=== PATIENT | female | born 1985 | race Caucasian/White ===

== ENCOUNTER 2017-06-18 19:33 | Emergency (ER) | payer SELFPAY ==
[~2017-06-18] VITALS: Ht 157.5 cm; Wt 74.6 kg
[2017-06-18 19:52] VITALS: BP 135/96; PULSE 122; RESP 20; TEMP 98.9; O2SAT 100
[2017-06-18] MEDS ORDERED: VENTAER INH (20:03)
[2017-06-18] MEDS ORDERED: PRED5PAK PO (20:03)
[2017-06-18] MEDS ORDERED: BENZ100 PO (20:03)
[2017-06-18] MEDS ORDERED: CORITAB2 PO (20:04)
[2017-06-18 20:20] VITALS: BP 129/93; PULSE 114; RESP 20; O2SAT 100
--- NOTE | 2017-06-18 21:36 | PD ---
HPI Chief Complaint: Cold / Flu Symptoms Time Seen by Provider: 21:32 Travel History International Travel<30 days: No Contact w/Intl Traveler<30days: No Traveled to known affect area: No History of Present Illness HPI The patient is a 32-year-old female that complains of a cough along with nausea and vomiting associated with the cough for 6 days. She has chills but denies taking her temperature and denies recording any fever. She does smoke one fourth pack a day. She does have chest discomfort in the midline lower sternal area. She does have wheezes at home. PFSH Past Medical History Anxiety: Yes Depression: Yes Diminished Hearing: No Immunizations Current: Yes Tetanus Vaccination: Unknown Influenza Vaccination: No ?: Not LMP: 6 MONTHS AGO ON DEPO : 2 Para: 2 Tubal Ligation: Yes Past Surgical History Other Surgery: Yes (EXPLOR. LAP) Social History Alcohol Use: Yes (OCC) Tobacco Use: Yes (6-7 CIGS/DAY) Substance Use: No Allergies-Medications (Allergen,Severity, Reaction): Coded Allergies: azithromycin (Verified Allergy, Severe, HIVES, 06/18/17) oseltamivir (Verified Allergy, Severe, HIVES, 06/18/17) topiramate (Verified Allergy, Severe, HIVES, 06/18/17) Reported Meds & Prescriptions Reported Meds & Active Scripts Active Reported Coricidin Hbp Cold & Flu (Chlorpheniramine-Acetaminophen) 2-325 Mg Tab 2 Tab PO Q4H PRN Prednisone (21) 5 mg tab Dose Pack (Prednisone) 5 Mg Dspk 5 Mg PO DIRECTED Tessalon Perles (Benzonatate) 100 Mg Cap 100 Mg PO TID PRN Ventolin Hfa 18 GM Inh (Albuterol Sulfate) 90 Mcg/Act Aer 2 Puff INH Q4-6H PRN Review of Systems Except as stated in HPI: all other systems reviewed are Neg Physical Exam Narrative GENERAL: The patient is alert, oriented 3 in no respiratory distress. Her oximetry is 100% and, when I see the patient, respirations are 18. SKIN: Focused skin assessment warm/dry. HEAD: Atraumatic. Normocephalic. EYES: Pupils equal and round. No scleral icterus. No injection or drainage. ENT: No nasal bleeding or discharge. Mucous membranes pink and moist. NECK: Trachea midline. No JVD. CARDIOVASCULAR: Regular rate and rhythm. No murmur appreciated. RESPIRATORY: No accessory muscle use. Widely scattered bilateral wheezes are heard. Breath sounds equal bilaterally. GASTROINTESTINAL: Abdomen soft, non-tender, nondistended. Hepatic and splenic margins not palpable. MUSCULOSKELETAL: No obvious deformities. No clubbing. No cyanosis. No edema. NEUROLOGICAL: Awake and alert. No obvious cranial nerve deficits. Motor grossly within normal limits. Normal speech. PSYCHIATRIC: Appropriate mood and affect; insight and judgment normal. Data Data Last Documented VS Vital Signs Date Time Temp Pulse Resp B/P (MAP) Pulse Ox O2 Delivery O2 Flow Rate FiO2 06/18/17 20:20 114 20 129/93 (105) 100 Room Air 06/18/17 19:52 98.9 Orders Orders Complete Blood Count With Diff (06/18/17 21:39) Basic Metabolic Panel (Bmp) (06/18/17 21:39) Urinalysis - C+S If Indicated (06/18/17 21:39) Iv Access Insert/Monitor (06/18/17 21:39) Ecg Monitoring (06/18/17 21:39) Oximetry (06/18/17 21:39) Oxygen Administration (06/18/17 21:39) Chest, Pa & Lat (06/18/17 21:39) Sodium Chloride 0.9% Flush (Ns Flush) (06/18/17 21:45) Methylprednisolone So Succ Inj (Solumedr (06/18/17 21:45) Albuterol-Ipratropium Neb (Duoneb Neb) (06/18/17 21:45) MDM Medical Decision Making Medical Screen Exam Complete: Yes Emergency Medical Condition: Yes Medical Record Reviewed: Yes Differential Diagnosis Fracture finger, contusion of finger, laceration finger Narrative Course The patient has a laceration of her fifth finger. She does not want it sutured and the finger does not need to be sutured, it can be bandaged. Diagnosis Primary Impression: Laceration of finger of right hand Additional Impression: Contusion of right little finger Additional Instructions: As we discussed, keep the finger clean and dry and use antibiotic ointment over the laceration. Change the bandage daily and return to emergency department if you have any problems. Disposition: 01 DISCHARGE HOME Condition: Stable Blane Brito MD Jun 18, 2017 21:35
[2017-06-18] MEDS ORDERED: methylPREDNISolone SOD SUCC 125 MG/2 ML VIAL IV PUSH ONE (21:45)
[2017-06-18] MEDS: RESP: ALBUTEROL 2.5 MG/IPRATROPIUM 0.5 MG NEB (SCH) INH ×3 (21:49→22:15)
--- NOTE | 2017-06-18 21:53 | RADRPT ---
EXAM DATE/TIME: 06/18/2017 21:46 [facility] COMPARISON: No previous studies available for comparison. INDICATIONS : Cough, chest congestion for 5 days MEDICAL HISTORY : None. SURGICAL HISTORY : None. ENCOUNTER: Initial ACUITY: 4 - 6 days PAIN SCORE: 5/10 LOCATION: Bilateral chest FINDINGS: PA and lateral views of the chest demonstrate the lungs to be symmetrically aerated without evidence of mass, infiltrate or effusion. The cardiomediastinal contours are unremarkable. Osseous structure s are intact. CONCLUSION: No acute disease. There is no evidence of pneumonia. Nikko Manzano MD on June 18, 2017 at 21:51 Board Certified Radiologist. This report was verified electronically.
[2017-06-18 22:00] VITALS: RESP 18; O2SAT 100
[2017-06-18 22:10] VITALS: BP 127/82; PULSE 122; RESP 18; O2SAT 100
[2017-06-18 22:13] LABS: BLOOD, URINE LARGE (NEG); GLUCOSE,URINE NEG (NEG); KETONE, URINE TRACE mg/dL (NEG); NITRITE,URINE NEG (NEG); PH, URINE 5.5 (5.0-8.5)
[2017-06-18 22:18] LABS: RBC, URINE 15-19 /hpf (0-3); SQUAMOUS EPITHELIAL CELL URINE > 8 /hpf (0-5); URINE COLOR YELLOW (YELLW/STRAW)
[2017-06-18 22:19] LABS: COMMENT (UR) CULT NOT INDICATED; CULTURE IF INDICATED CULT NOT INDICATED
[2017-06-18 22:22] LABS: AUTOMATED NEUTROPHIL # 6.6 TH/MM3 (1.8-7.7); BASOPHIL # 0.1 TH/MM3 (0-0.2); BASOPHIL % 0.5 % (0.0-2.0); EOSINOPHIL # 0.3 TH/MM3 (0-0.4); EOSINOPHIL % 2.4 % (0.0-4.0); HEMATOCRIT 42.3 % (35.0-46.0); HEMO FLAGS AUTO DIFF; LYMPH % 29.9 % (9.0-44.0); LYMPHOCYTE # 3.2 TH/MM3 (1.0-4.8); MEAN CELL VOLUME 82.4 FL (80.0-100.0); MEAN CORPUSCULAR HEMOGLOBIN 27.4 PG (27.0-34.0); MEAN CORPUSCULAR HGB CONC 33.3 % (32.0-36.0); MONO % 4.2 % (0.0-8.0); PLATELET COUNT 372 TH/MM3 (150-450); RED BLOOD COUNT 5.14 MIL/MM3 (4.00-5.30); RED CELL DISTRIBUTION WIDTH 12.6 % (11.6-17.2); WHITE BLOOD COUNT 10.6 TH/MM3 (4.0-11.0)
[2017-06-18 22:29] LABS: POTASSIUM 3.3 MEQ/L (3.5-5.1)
[2017-06-18] MEDS: SODIUM CHLORIDE 0.9% FLUSH 10 ML FLUSH IVF PRN ×2 (22:30→22:54)
[2017-06-18 22:32] LABS: BICARBONATE 24.9 MEQ/L (21.0-32.0)
[2017-06-18 22:37] LABS: PLATELET ESTIMATE SMEAR NORMAL (NORMAL); PLATELET MORPHOLOGY NORMAL (NORMAL); SCAN/DIFF AUTO DIFF CONFIRMED
[2017-06-18] MEDS ORDERED: SODIUM CHLOR 0.9% 1000 ML INJ 1,000 ML IV SCH (22:45)
--- NOTE | 2017-06-18 22:59 | PD ---
HPI Chief Complaint: Cold / Flu Symptoms Time Seen by Provider: 21:32 Travel History International Travel<30 days: No Contact w/Intl Traveler<30days: No Traveled to known affect area: No History of Present Illness HPI The patient is a 32-year-old female who complains of a nonproductive cough for one week. The patient has vomiting in association with the cough. She denies any diarrhea. She states she does have chills. She has pleuritic chest pain in the lower midline sternal area. She admits to smoking one fourth pack a day. PFSH Past Medical History Anxiety: Yes Depression: Yes Diminished Hearing: No Immunizations Current: Yes Tetanus Vaccination: Unknown Influenza Vaccination: No ?: Not LMP: 6 MONTHS AGO ON DEPO : 2 Para: 2 Tubal Ligation: Yes Past Surgical History Other Surgery: Yes (EXPLOR. LAP) Social History Alcohol Use: Yes (OCC) Tobacco Use: Yes (6-7 CIGS/DAY) Substance Use: No Allergies-Medications (Allergen,Severity, Reaction): Coded Allergies: azithromycin (Verified Allergy, Severe, HIVES, 06/18/17) oseltamivir (Verified Allergy, Severe, HIVES, 06/18/17) topiramate (Verified Allergy, Severe, HIVES, 06/18/17) Reported Meds & Prescriptions Reported Meds & Active Scripts Active Doxycycline Hyclate 100 Mg Cap 100 Mg PO BID Reported Coricidin Hbp Cold & Flu (Chlorpheniramine-Acetaminophen) 2-325 Mg Tab 2 Tab PO Q4H PRN Prednisone (21) 5 mg tab Dose Pack (Prednisone) 5 Mg Dspk 5 Mg PO DIRECTED Tessalon Perles (Benzonatate) 100 Mg Cap 100 Mg PO TID PRN Ventolin Hfa 18 GM Inh (Albuterol Sulfate) 90 Mcg/Act Aer 2 Puff INH Q4-6H PRN Review of Systems Except as stated in HPI: all other systems reviewed are Neg Physical Exam Narrative GENERAL: The patient is alert, oriented 3 in no respiratory distress but she does have chest pain in the midline lower sternal area. Her vital signs are normal except for heart rate of 114. SKIN: Focused skin assessment warm/dry. No skin rash is seen. HEAD: Atraumatic. Normocephalic. EYES: Pupils equal and round. No scleral icterus. No injection or drainage. ENT: No nasal bleeding or discharge. Mucous membranes pink and moist. NECK: Trachea midline. No JVD. CARDIOVASCULAR: Regular rate and rhythm. No murmur appreciated. RESPIRATORY: No accessory muscle use. Scattered wheezes are heard bilaterally along with a few rhonchi.. Breath sounds equal bilaterally. GASTROINTESTINAL: Abdomen soft, non-tender, nondistended. Hepatic and splenic margins not palpable. No guarding or rebound is present. MUSCULOSKELETAL: No obvious deformities. No clubbing. No cyanosis. No edema. NEUROLOGICAL: Awake and alert. No obvious cranial nerve deficits. Motor grossly within normal limits. Normal speech. PSYCHIATRIC: Appropriate mood and affect; insight and judgment normal. Data Data Last Documented VS Vital Signs Date Time Temp Pulse Resp B/P (MAP) Pulse Ox O2 Delivery O2 Flow Rate FiO2 06/18/17 22:10 122 18 127/82 (97) 100 Room Air 06/18/17 19:52 98.9 Orders Orders Complete Blood Count With Diff (06/18/17 21:39) Basic Metabolic Panel (Bmp) (06/18/17 21:39) Urinalysis - C+S If Indicated (06/18/17 21:39) Iv Access Insert/Monitor (06/18/17 21:39) Ecg Monitoring (06/18/17 21:39) Oximetry (06/18/17 21:39) Oxygen Administration (06/18/17 21:39) Chest, Pa & Lat (06/18/17 21:39) Sodium Chloride 0.9% Flush (Ns Flush) (06/18/17 21:45) Methylprednisolone So Succ Inj (Solumedr (06/18/17 21:45) Albuterol-Ipratropium Neb (Duoneb Neb) (06/18/17 21:45) Sodium Chlor 0.9% 1000 Ml Inj (Ns 1000 M (06/18/17 22:45) Ondansetron Inj (Zofran Inj) (06/18/17 23:00) Doxycycline (Vibramycin) (06/18/17 23:15) Labs Laboratory Tests Test 06/18/17 21:50 06/18/17 22:18 Urine Color YELLOW Urine Turbidity CLOUDY Urine pH 5.5 Urine Specific [place] 1.033 Urine Protein NEG mg/dL Urine Glucose (UA) NEG mg/dL Urine Ketones TRACE mg/dL Urine Occult Blood LARGE Urine Nitrite NEG Urine Bilirubin NEG Urine Leukocyte Esterase NEG Urine RBC 15-19 /hpf Urine WBC 3-5 /hpf Urine Squamous Epithelial Cells > 8 /hpf Urine Amorphous Sediment SMALL Urine Bacteria NONE /hpf Microscopic Urinalysis Comment CULT NOT INDICATED White Blood Count 10.6 TH/MM3 Red Blood Count 5.14 MIL/MM3 Hemoglobin 14.1 GM/DL Hematocrit 42.3 % Mean Corpuscular Volume 82.4 FL Mean Corpuscular Hemoglobin 27.4 PG Mean Corpuscular Hemoglobin Concent 33.3 % Red Cell Distribution Width 12.6 % Platelet Count 372 TH/MM3 Mean Platelet Volume 6.9 FL Neutrophils (%) (Auto) 63.0 % Lymphocytes (%) (Auto) 29.9 % Monocytes (%) (Auto) 4.2 % Eosinophils (%) (Auto) 2.4 % Basophils (%) (Auto) 0.5 % Neutrophils # (Auto) 6.6 TH/MM3 Lymphocytes # (Auto) 3.2 TH/MM3 Monocytes # (Auto) 0.4 TH/MM3 Eosinophils # (Auto) 0.3 TH/MM3 Basophils # (Auto) 0.1 TH/MM3 CBC Comment AUTO DIFF Differential Comment AUTO DIFF CONFIRMED Platelet Estimate NORMAL Platelet Morphology Comment NORMAL Red Cell Morphology Comment NORMAL Blood Urea Nitrogen 22 MG/DL Creatinine 1.20 MG/DL Random Glucose 81 MG/DL Calcium Level 8.6 MG/DL Sodium Level 139 MEQ/L Potassium Level 3.3 MEQ/L Chloride Level 105 MEQ/L Carbon Dioxide Level 24.9 MEQ/L Anion Gap 9 MEQ/L Estimat Glomerular Filtration Rate 52 ML/MIN [facility] Medical Decision Making Medical Screen Exam Complete: Yes Emergency Medical Condition: Yes Medical Record Reviewed: Yes Differential Diagnosis Bronchitis, pulmonary embolus-unlikely, pneumonia, asthma, hypoxemia Narrative Course The patient is not hypoxemic, her oximetry is 100%. She does have a persistent heart rate for murmur embolus is unlikely because of her midline chest pain rather than on one side or the other and because of her oximetry of 100%. The chest x-ray does not show any pneumonia. She does have wheezes and a persistent cough. Impression is bronchitis. Plan: The patient will be given doxycycline 100 mg twice daily for 10 days. She should follow-up with a primary care physician or return to emergency department if worse. Physician Communication Physician Communication As we discussed, we will give you a 6 day work excuse. The antibiotic is one capsule twice daily for 10 days. Follow-up with a primary care physician. If worse, return to the emergency department. Discontinue smoking. Diagnosis Primary Impression: Bronchitis Additional Instructions: As we discussed, the antibiotic is twice daily for 10 days and follow-up with a primary care physician next week. Return to emergency department if you have any problems. Med/Other Pt SpecificInfo: Prescription(s) given Scripts Doxycycline Hyclate (Doxycycline Hyclate) 100 Mg Cap 100 MG PO BID for Infection, #20 CAP 0 Refills Prov: Blane Brito MD 06/18/17 Disposition: 01 DISCHARGE HOME Condition: Stable Blane Brito MD Jun 18, 2017 22:59
[2017-06-18] MEDS ORDERED: DOXY100C PO (23:00)
[2017-06-18] MEDS ORDERED: ONDANSETRON HCL 4 MG/2 ML VIAL IV ONE (23:00)
[2017-06-18 23:10] VITALS: BP 138/71; PULSE 134; RESP 20; O2SAT 100
[2017-06-18] MEDS ORDERED: DOXYCYCLINE HYCLATE 100 MG CAP PO ONE (23:15)
[2017-06-18] MEDS ORDERED: HYDROcodone 5 MG/HOMATROPINE 1.5 MG SYRUP 5 ML CUP PO ONE (23:45)
[2017-06-18] MEDS ORDERED: HYDR1SOL20 PO (23:46)
[2017-06-19 00:20] VITALS: BP 138/68; PULSE 122; RESP 18; O2SAT 100
== END 2017-06-19 00:25 | disposition home or self-care (01) ==
LOC: PHED 19:33
DX: J40 Bronchitis, not specified as acute or chronic (principal); F17.210 Nicotine dependence, cigarettes, uncomplicated
CPT/HCPCS: 71020; 80048; 81001; 85025; 94640; 94664; 96361; 96374; 96375; 99284; J2405; J2930; J7030

== ENCOUNTER 2017-07-03 16:43 | Emergency (ER) | payer MEDICAID, OTHER ==
[~2017-07-03] VITALS: Ht 157.5 cm; Wt 75.0 kg
[~2017-07-03 16:43] MED LIST: BENZ100 PO; CORITAB2 PO; DOXY100C PO; HYDR1SOL20 PO; PRED5PAK PO; VENTAER INH
[2017-07-03 16:47] VITALS: BP 124/89; PULSE 104; RESP 18; TEMP 98; O2SAT 99
[2017-07-03] MEDS ORDERED: PENI500T PO (17:21)
--- NOTE | 2017-07-03 17:22 | PD ---
HPI Chief Complaint: Oral / Dental Pain or Problem Time Seen by Provider: 16:58 Travel History International Travel<30 days: No Contact w/Intl Traveler<30days: No Traveled to known affect area: No History of Present Illness HPI 32-year-old female here for left upper dental pain 7 days. Patient reports multiple decayed and fractured teeth at the site of the discomfort. She reports the pain as throbbing, constant, worse with eating. Unrelieved by OTC Tylenol. She denies fever or chills. PFSH Past Medical History Anxiety: Yes Depression: Yes Diminished Hearing: No Immunizations Current: Yes Tetanus Vaccination: Unknown Influenza Vaccination: No ?: Not LMP: DEPO SHOT-DOES NOT GET : 2 Para: 2 Tubal Ligation: Yes Past Surgical History Other Surgery: Yes (EXPLOR. LAP) Social History Alcohol Use: Yes (OCC beer) Tobacco Use: Yes (quit 2 weeks ago smoked off and on for 20 yrs) Substance Use: No Allergies-Medications (Allergen,Severity, Reaction): Coded Allergies: azithromycin (Verified Allergy, Severe, HIVES, 07/03/17) oseltamivir (Verified Allergy, Severe, HIVES, 07/03/17) topiramate (Verified Allergy, Severe, HIVES, 07/03/17) Reported Meds & Prescriptions Reported Meds & Active Scripts Active No Active Prescriptions or Reported Medications Review of Systems Except as stated in HPI: all other systems reviewed are Neg Physical Exam Narrative GENERAL: Well-nourished, well-developed patient. SKIN: Focused skin assessment warm/dry. HEAD: Normocephalic. EYES: No scleral icterus. No injection or drainage. MOUTH: Mucous membranes moist, no lesions, tongue appear normal. Widespread dental decay with left upper gum erythema NECK: Supple, trachea midline. No JVD or lymphadenopathy. CARDIOVASCULAR: Regular rate and rhythm without murmurs, gallops, or rubs. RESPIRATORY: Breath sounds equal bilaterally. No accessory muscle use. Data Data Last Documented VS Vital Signs Date Time Temp Pulse Resp B/P (MAP) Pulse Ox O2 Delivery O2 Flow Rate FiO2 07/03/17 16:47 98.0 104 18 124/89 (101) 99 MDM Medical Decision Making Medical Screen Exam Complete: Yes Emergency Medical Condition: Yes Differential Diagnosis Dental abscess, dental caries, periodontal disease Narrative Course 32-year-old female here for evaluation of left upper dental pain 1 week. On exam patient has widespread dental decay with multiple decayed teeth with surrounding gum erythema. She is nontoxic appearing. Patient be treated for oral infection and instructed follow-up with dentist Diagnosis Primary Impression: Dental infection Referrals: Dentist Additional Instructions: Take the antibiotics as prescribed. Take [id number] Tylenol or Motrin as needed for pain. Take 600 800 mg of ibuprofen every 6-8 hours as needed for pain. Follow-up with her dentist Scripts Penicillin V Potassium (Penicillin V Potassium) 500 Mg Tab 500 MG PO Q6H for Infection for 7 Days, #28 TAB 0 Refills Prov: Brianna Asencio 07/03/17 Disposition: 01 DISCHARGE HOME Condition: Stable Brianna Asencio Jul 03, 2017 17:22
== END 2017-07-03 17:49 | disposition home or self-care (01) ==
LOC: PHEFT 16:43
DX: K04.7 Periapical abscess without sinus (principal); K03.81 Cracked tooth
CPT/HCPCS: 99283

== ENCOUNTER 2017-07-28 22:14 | Emergency (ER) | payer SELFPAY ==
[~2017-07-28] VITALS: Ht 157.5 cm; Wt 74.4 kg
[~2017-07-28 22:14] MED LIST changes: -BENZ100 PO; -CORITAB2 PO; -DOXY100C PO; -HYDR1SOL20 PO; +PENI500T PO; -PRED5PAK PO; -VENTAER INH
[2017-07-28 22:22] VITALS: BP 135/86; PULSE 119; RESP 18; TEMP 99.1; O2SAT 99
[2017-07-28] MEDS ORDERED: SODIUM CHLOR 0.9% 1000 ML INJ 1,000 ML IV SCH (22:46)
--- NOTE | 2017-07-28 22:59 | PD ---
HPI Chief Complaint: abdominal pain Time Seen by Provider: 22:44 Travel History International Travel<30 days: No Contact w/Intl Traveler<30days: No Traveled to known affect area: No History of Present Illness HPI Patient is a 32-year-old female who comes in complaining of abdominal pain. She says she has had epigastric pain for the past week. She says she has tried taking Tylenol and ibuprofen without relief of her pain. She says that standing and laying down makes the pain worse. She says she had pain like this a year ago and was told it was gallstones. She has not followed up regarding this. She denies fever or chills. She's had some nausea, but no vomiting. She says she is moving her bowels normally. She denies any urinary symptoms. [facility] Past Medical History Anxiety: Yes Depression: Yes Diminished Hearing: No Immunizations Current: Yes : 2 Para: 2 Tubal Ligation: Yes Past Surgical History Other Surgery: Yes (EXPLOR. LAP) Social History Alcohol Use: Yes (OCC beer) Tobacco Use: Yes (quit 2 weeks ago smoked off and on for 20 yrs) Substance Use: No Allergies-Medications (Allergen,Severity, Reaction): Coded Allergies: azithromycin (Verified Allergy, Severe, HIVES, 07/28/17) oseltamivir (Verified Allergy, Severe, HIVES, 07/28/17) topiramate (Verified Allergy, Severe, HIVES, 07/28/17) Reported Meds & Prescriptions Reported Meds & Active Scripts Active Reported Depo-Provera Inj (Medroxyprogesterone Inj) 150 Mg/Ml Inj 150 Mg IM Q90D Review of Systems Except as stated in HPI: all other systems reviewed are Neg General / Constitutional: No: Fever, Chills HENT: No: Headaches, Lightheadedness Respiratory: No: Shortness of Breath Gastrointestinal: Positive: Nausea, Abdominal Pain, No: Vomiting, Diarrhea Genitourinary: No: Dysuria, Flank Pain Musculoskeletal: No: Myalgias, Edema Skin: No Rash, No Change in Pigmentation Neurologic: No: Weakness, Dizziness Physical Exam Narrative GENERAL: Awake and alert, in no acute distress. SKIN: Focused skin assessment warm/dry. HEAD: Atraumatic. Normocephalic. EYES: Pupils equal and round. No scleral icterus. ENT: Mucous membranes pink and moist. NECK: Trachea midline. No JVD. CARDIOVASCULAR: Regular rate and rhythm. No murmur appreciated. RESPIRATORY: No accessory muscle use. Clear to auscultation. Breath sounds equal bilaterally. GASTROINTESTINAL: Abdomen soft, nondistended. Tender to palpation of the mid epigastric area as well as left upper quadrant. No rebound or guarding. MUSCULOSKELETAL: No obvious deformities. No clubbing. No cyanosis. No edema. NEUROLOGICAL: Awake and alert. No obvious cranial nerve deficits. Motor grossly within normal limits. Normal speech. PSYCHIATRIC: Appropriate mood and affect; insight and judgment normal. Data Data Last Documented VS Vital Signs Date Time Temp Pulse Resp B/P (MAP) Pulse Ox O2 Delivery O2 Flow Rate FiO2 07/28/17 23:44 106 18 133/96 (108) 100 Room Air 07/28/17 22:22 99.1 Orders Orders Basic Metabolic Panel (Bmp) (07/28/17 22:46) Complete Blood Count With Diff (07/28/17 22:46) Lipase (07/28/17 22:46) Prothrombin Time / Inr (Pt) (07/28/17 22:46) Act Partial Throm Time (Ptt) (07/28/17 22:46) Urinalysis - C+S If Indicated (07/28/17 22:46) Iv Access Insert/Monitor (07/28/17 22:46) Ecg Monitoring (07/28/17 22:46) Oximetry (07/28/17 22:46) Morphine Inj (Morphine Inj) (07/28/17 23:00) Ondansetron Inj (Zofran Inj) (07/28/17 23:00) Sodium Chlor 0.9% 1000 Ml Inj (Ns 1000 M (07/28/17 22:46) Sodium Chloride 0.9% Flush (Ns Flush) (07/28/17 23:00) Famotidine Inj (Pepcid Inj) (07/28/17 23:00) Al-Mag Hy-Si 40-40-4 Mg/Ml Liq (Mag-Al P (07/28/17 23:00) Lidocaine 2% Viscous (Xylocaine 2% Visco (07/28/17 23:00) Hepatic Functional Panel (07/28/17 22:46) Urine Culture (07/28/17 23:10) Tramadol (Ultram) (07/29/17 00:15) Labs Laboratory Tests Test 07/28/17 23:10 07/28/17 23:25 Urine Color YELLOW Urine Turbidity SLIGHT Urine pH 5.5 Urine Specific [place] 1.026 Urine Protein NEG mg/dL Urine Glucose (UA) NEG mg/dL Urine Ketones NEG mg/dL Urine Occult Blood NEG Urine Nitrite NEG Urine Bilirubin NEG Urine Leukocyte Esterase NEG Urine RBC 0-3 /hpf Urine WBC 9-14 /hpf Urine Squamous Epithelial Cells 6-8 /hpf Urine Bacteria OCC /hpf Urine Mucus MOD /lpf Microscopic Urinalysis Comment CULTURE INDICATED White Blood Count 9.4 TH/MM3 Red Blood Count 5.32 MIL/MM3 Hemoglobin 14.5 GM/DL Hematocrit 45.1 % Mean Corpuscular Volume 84.7 FL Mean Corpuscular Hemoglobin 27.3 PG Mean Corpuscular Hemoglobin Concent 32.2 % Red Cell Distribution Width 14.8 % Platelet Count 349 TH/MM3 Mean Platelet Volume 7.4 FL Neutrophils (%) (Auto) 69.4 % Lymphocytes (%) (Auto) 23.9 % Monocytes (%) (Auto) 4.0 % Eosinophils (%) (Auto) 2.2 % Basophils (%) (Auto) 0.5 % Neutrophils # (Auto) 6.5 TH/MM3 Lymphocytes # (Auto) 2.3 TH/MM3 Monocytes # (Auto) 0.4 TH/MM3 Eosinophils # (Auto) 0.2 TH/MM3 Basophils # (Auto) 0.0 TH/MM3 CBC Comment DIFF FINAL Differential Comment Prothrombin Time 10.7 SEC Prothromb Time International Ratio 1.1 RATIO Activated Partial Thromboplast Time 27.7 SEC Blood Urea Nitrogen 16 MG/DL Creatinine 1.00 MG/DL Random Glucose 67 MG/DL Total Protein 8.2 GM/DL Albumin 4.6 GM/DL Calcium Level 8.7 MG/DL Alkaline Phosphatase 106 U/L Aspartate Amino Transf (AST/SGOT) 21 U/L Alanine Aminotransferase (ALT/SGPT) 29 U/L Total Bilirubin 0.3 MG/DL Direct Bilirubin LESS THAN 0.1 MG/DL Sodium Level 137 MEQ/L Potassium Level 3.3 MEQ/L Chloride Level 104 MEQ/L Carbon Dioxide Level 23.2 MEQ/L Anion Gap 10 MEQ/L Estimat Glomerular Filtration Rate 65 ML/MIN Indirect Bilirubin 0.2 MG/DL Lipase 226 U/L [facility] Medical Decision Making Medical Screen Exam Complete: Yes Emergency Medical Condition: Yes Medical Record Reviewed: Yes Differential Diagnosis Gastritis versus pancreatitis versus cholelithiasis versus cholecystitis Narrative Course Patient is a 32-year-old female comes in complaining of abdominal pain for the past week. Exam shows epigastric tenderness on palpation. IV established, labs sent. Labs show no acute abnormalities. Bilirubin is within normal limits , AST and ALT are within normal limits. Urine is positive for bacteria. Patient given GI cocktail and a small dose of pain medicine. She reports some relief of her pain. Given additional pain medicine. Advised this is likely gastritis. Advised to eat a bland diet, avoid spicy foods, quit smoking. Given a prescription for Macrobid as well as Zantac. Advised follow-up with a primary doctor and gastroenterology. Advised to return to the ED as needed for any worsening symptoms. Diagnosis Primary Impression: Gastritis Qualified Codes: K29.00 - Acute gastritis without bleeding Additional Impression: UTI (urinary tract infection) Qualified Codes: N30.00 - Acute cystitis without hematuria Referrals: [facility] call for appointment Patient Instructions: Gastritis (ED), General Instructions, Urinary Tract Infection in Women (ED) Additional Instructions: Take all of your antibiotic. Take the Zantac twice a day. Avoid spicy foods, peppers, tomatoes, caffeine, smoking. Follow-up with these area clinic. Follow -up with gastroenterology as needed. Return to the ED as needed for any worsening symptoms. Scripts Nitrofurantoin Monohydrate Macrocrystals (Macrobid) 100 Mg Cap 100 MG PO BID for Infection for 5 Days, #10 CAP 0 Refills Prov: Jennyfer Urias MD 07/29/17 Ranitidine (Zantac) 150 Mg Tab 150 MG PO BID for Reduce Stomach Acid, #60 TAB 0 Refills Prov: Jennyfer Urias MD 07/29/17 Disposition: 01 DISCHARGE HOME Condition: Stable Jennyfer Urias MD Jul 28, 2017 22:59
[2017-07-28] MEDS ORDERED: ONDANSETRON HCL 4 MG/2 ML VIAL IVP ONE (23:00)
[2017-07-28] MEDS ORDERED: LIDOCAINE VISCOUS 2% SOLN 15 ML UDC PO ONE (23:00)
[2017-07-28] MEDS ORDERED: FAMOTIDINE 20 MG/2 ML VIAL IV PUSH ONE (23:00)
[2017-07-28] MEDS ORDERED: SODIUM CHLORIDE 0.9% FLUSH 10 ML FLUSH IV FLUSH PRN (23:00)
[2017-07-28] MEDS ORDERED: MORPHINE SULFATE 4 MG/ML INJ IV PUSH ONE (23:00)
[2017-07-28] MEDS ORDERED: ALUMINUM/MAGNESIUM/SIMETH 30 ML CUP PO ONE (23:00)
[2017-07-28 23:38] LABS: AUTOMATED NEUTROPHIL # 6.5 TH/MM3 (1.8-7.7); BASOPHIL % 0.5 % (0.0-2.0); EOSINOPHIL # 0.2 TH/MM3 (0-0.4); EOSINOPHIL % 2.2 % (0.0-4.0); HEMATOCRIT 45.1 % (35.0-46.0); LYMPH % 23.9 % (9.0-44.0); LYMPHOCYTE # 2.3 TH/MM3 (1.0-4.8); MEAN CELL VOLUME 84.7 FL (80.0-100.0); MEAN CORPUSCULAR HEMOGLOBIN 27.3 PG (27.0-34.0); MEAN CORPUSCULAR HGB CONC 32.2 % (32.0-36.0); NEUT % 69.4 % (16.0-70.0); PLATELET COUNT 349 TH/MM3 (150-450); RED BLOOD COUNT 5.32 MIL/MM3 (4.00-5.30); RED CELL DISTRIBUTION WIDTH 14.8 % (11.6-17.2); WHITE BLOOD COUNT 9.4 TH/MM3 (4.0-11.0)
[2017-07-28 23:40] LABS: BLOOD, URINE NEG (NEG); GLUCOSE,URINE NEG (NEG); KETONE, URINE NEG (NEG); NITRITE,URINE NEG (NEG); PH, URINE 5.5 (5.0-8.5)
[2017-07-28 23:44] VITALS: BP 133/96; PULSE 106; RESP 18; O2SAT 100
[2017-07-28 23:45] LABS: HEMO FLAGS DIFF FINAL
[2017-07-28 23:49] LABS: CHLORIDE 104 MEQ/L (98-107); POTASSIUM 3.3 MEQ/L (3.5-5.1); SODIUM (NA) 137 MEQ/L (136-145)
[2017-07-28 23:53] LABS: ANION GAP 10 MEQ/L (5-15); APTT (PATIENT) 27.7 SEC (24.3-30.1); BICARBONATE 23.2 MEQ/L (21.0-32.0); BLOOD UREA NITROGEN 16 MG/DL (7-18); INTERNATIONAL NORMALIZED RATIO 1.1 RATIO; PROTHROMBIN TIME - PATIENT 10.7 SEC (9.8-11.6)
[2017-07-28 23:53] LABS: URINE COLOR YELLOW (YELLW/STRAW)
[2017-07-28 23:55] LABS: MUCUS URINE MOD /lpf (OCC)
[2017-07-28 23:56] LABS: RBC, URINE 0-3 /hpf (0-3)
[2017-07-28 23:56] LABS: ALT (GPT) 29 U/L (10-53); AST (GOT) 21 U/L (15-37); GLOMERULAR FILTRATION RATE 65 ML/MIN (>89)
[2017-07-28 23:57] LABS: BACTERIA, URINE OCC /hpf; COMMENT (UR) CULTURE INDICATED; CULTURE IF INDICATED CULTURE INDICATED
[2017-07-28 23:58] LABS: INDIRECT BILIRUBIN 0.2 MG/DL (0.0-0.8); TOTAL BILIRUBIN ADULT 0.3 MG/DL (0.2-1.0)
[2017-07-28 23:59] LABS: ALKALINE PHOSPHATASE 106 U/L (45-117)
[2017-07-29] MEDS ORDERED: DEPO150I IM
[2017-07-29] MEDS ORDERED: traMADol HCL 50 MG TAB PO ONE (00:15)
[2017-07-29] MEDS ORDERED: MACR100C2 PO (00:17)
[2017-07-29] MEDS ORDERED: ZANT150T2 PO (00:17)
[2017-07-29 00:19] VITALS: BP 119/74; TEMP 99
== END 2017-07-29 00:35 | disposition home or self-care (01) ==
LOC: PHED 22:14
DX: K29.00 Acute gastritis without bleeding (principal); N30.00 Acute cystitis without hematuria; B96.89 Other specified bacterial agents as the cause of diseases classified elsewhere; Z87.891 Personal history of nicotine dependence
CPT/HCPCS: 80048; 80076; 81001; 83690; 85025; 85610; 85730; 87086; 96361; 96374; 96375; 99284; J2270; J2405; J7030

== ENCOUNTER 2017-08-15 17:05 | Emergency (ER) | payer SELFPAY ==
[~2017-08-15] VITALS: Ht 157.5 cm; Wt 74.8 kg
[~2017-08-15 17:05] MED LIST changes: +DEPO150I IM; +MACR100C2 PO; -PENI500T PO; +ZANT150T2 PO
[2017-08-15 17:07] VITALS: BP 131/91; PULSE 116; RESP 16; TEMP 99.3; O2SAT 98
[2017-08-15] MEDS ORDERED: ALBUAER3 INH (17:47)
[2017-08-15] MEDS ORDERED: BENZ100 PO (17:47)
[2017-08-15] MEDS ORDERED: PRED20 PO (17:47)
--- NOTE | 2017-08-15 17:47 | PD ---
HPI Chief Complaint: Cold / Flu Symptoms Time Seen by Provider: 17:38 Travel History International Travel<30 days: No Contact w/Intl Traveler<30days: No Traveled to known affect area: No History of Present Illness HPI 32-year-old female here for cough, nasal congestion, subjective fever 7 days. She reports occasional wheezing. History of asthma. She denies chest pain, shortness of breath. No sick contacts at home. No foreign travel. Symptom severity is moderate. Unrelieved by OTC cough and cold medicines. PFSH Past Medical History Anemia: Yes Anxiety: Yes Depression: Yes Diminished Hearing: No Reproductive: Yes (ENDOMETRIOSIS) Immunizations Current: Yes Pneumonia: Yes Seizures: Yes (R/T BEING TAKEN OFF MEDS (SEROQUEL AND KLONOPIN)) Tetanus Vaccination: > 5 Years Influenza Vaccination: Yes ?: Not : 2 Para: 2 Ovarian Cysts: Yes Tubal Ligation: Yes (2009) Past Surgical History Abdominal Surgery: Yes (EXP LAP: 2016 R/T "PAINFUL PERIODS") Section: Yes (X1, 2009) Other Surgery: Yes (EXPLOR. LAP) Family History Family Hypercholesterolemia: Yes (MATERNAL GRANDFATHER) Social History Alcohol Use: Yes (OCC beer) Tobacco Use: Yes (QUIT 06/28/17, PRIOR TO THAT: 08/21 PPD) Substance Use: No Allergies-Medications (Allergen,Severity, Reaction): Coded Allergies: azithromycin (Verified Allergy, Severe, HIVES, 08/15/17) oseltamivir (Verified Allergy, Severe, HIVES, 08/15/17) topiramate (Verified Allergy, Severe, HIVES, 08/15/17) Reported Meds & Prescriptions Reported Meds & Active Scripts Active Prednisone 20 Mg Tab 40 Mg PO DAILY Take 40 mg (2 tablets) daily for 5 days Proair Hfa 8.5 GM Inh (Albuterol Sulfate) 90 Mcg/Act Aer 2 Puff INH Q4-6H PRN 108 mcg/actuation Tessalon Perles (Benzonatate) 100 Mg Cap 100 Mg PO TID PRN 5 Days Review of Systems Except as stated in HPI: all other systems reviewed are Neg General / Constitutional: Positive: Fever Eyes: No: Visual changes HENT: Positive: Congestion Cardiovascular: No: Chest Pain or Discomfort Respiratory: Positive: Cough Gastrointestinal: No: Abdominal Pain Genitourinary: No: Dysuria Musculoskeletal: No: Pain Skin: No Rash Physical Exam Narrative GENERAL: Alert female. Nontoxic appearing. No distress. SKIN: Warm and dry. HEAD: Normocephalic. EYES: No injection or drainage. NECK: Supple, trachea midline. No JVD or lymphadenopathy. CARDIOVASCULAR: Regular rate and rhythm RESPIRATORY: Breath sounds equal bilaterally. No accessory muscle use. Patient with a harsh sounding cough. GASTROINTESTINAL: Abdomen soft, non-tender, nondistended. Data Data Last Documented VS Vital Signs Date Time Temp Pulse Resp B/P (MAP) Pulse Ox O2 Delivery O2 Flow Rate FiO2 08/15/17 17:19 Room Air 08/15/17 17:07 99.3 116 16 131/91 (104) 98 Orders Orders Ed Discharge Order (08/15/17 17:48) [facility] Medical Decision Making Medical Screen Exam Complete: Yes Emergency Medical Condition: Yes Differential Diagnosis URI, influenza, bronchitis, pneumonia Narrative Course 32-year-old female here with cough and congestion 7 days. Reports occasional wheezing. She is well-appearing. Her vital signs are stable. She does have a harsh sounding cough. No adventitious breath sounds. She has a history of asthma and does not have an inhaler. Symptomatic treatment for bronchitis was discussed with patient. She will be discharged home with Delilah Bustos, short dose of steroids, albuterol inhaler. With her primary doctor. Diagnosis Primary Impression: URI (upper respiratory infection) Qualified Codes: J06.9 - Acute upper respiratory infection, unspecified; B97.89 - Other viral agents as the cause of diseases classified elsewhere Referrals: Primary Care Physician Additional Instructions: Stay well hydrated by drinking plenty of fluids. Tylenol and ibuprofen as needed for pain and fever. Rest. Follow-up the primary doctor. Scripts Prednisone (Prednisone) 20 Mg Tab 40 MG PO DAILY, #6 TAB 0 Refills Take 40 mg (2 tablets) daily for 5 days Prov: Brianna Asencio [employer] 08/15/17 Albuterol 8.5 GM Inh (Proair Hfa 8.5 GM Inh) 90 Mcg/Act Aer 2 PUFF INH Q4-6H Y for SHORTNESS OF BREATH, #1 INHALER 0 Refills 108 mcg/actuation Prov: Brianna Asencio [employer] 08/15/17 Benzonatate (Tessalon Perles) 100 Mg Cap 100 MG PO TID Y for COUGH for 5 Days, CAP 0 Refills Prov: Brianna Asencio 08/15/17 Disposition: 01 DISCHARGE HOME Condition: Stable Brianna Asencio Aug 15, 2017 17:47
== END 2017-08-15 17:57 | disposition home or self-care (01) ==
LOC: PHEFT 17:05
DX: J06.9 Acute upper respiratory infection, unspecified (principal); J45.909 Unspecified asthma, uncomplicated; F41.9 Anxiety disorder, unspecified; F32.9 Major depressive disorder, single episode, unspecified; Z87.891 Personal history of nicotine dependence
CPT/HCPCS: 99284

== ENCOUNTER 2017-09-03 13:34 | Emergency (ER) | payer SELFPAY ==
[~2017-09-03] VITALS: Ht 157.5 cm; Wt 74.5 kg
[~2017-09-03 13:34] MED LIST changes: +ALBUAER3 INH; +BENZ100 PO; -DEPO150I IM; -MACR100C2 PO; +PRED20 PO; -ZANT150T2 PO
[2017-09-03 13:36] VITALS: BP 95/63; PULSE 102; RESP 17; TEMP 98.4; O2SAT 100
[2017-09-03] MEDS ORDERED: SODIUM CHLOR 0.9% 1000 ML INJ 1,000 ML IV ONE (14:00)
[2017-09-03] MEDS ORDERED: ONDANSETRON HCL 4 MG/2 ML VIAL IV PUSH ONE (14:00)
[2017-09-03] MEDS ORDERED: KETOROLAC TROMETHAMINE 30 MG/ML (IVP) VIAL IV PUSH ONE (14:00)
[2017-09-03] MEDS ORDERED: DEPO150I IM (14:23)
--- NOTE | 2017-09-03 14:34 | PD ---
HPI Chief Complaint: GI Complaint Time Seen by Provider: 13:42 Travel History International Travel<30 days: No Contact w/Intl Traveler<30days: No Traveled to known affect area: No History of Present Illness HPI This is a 32-year-old female who presents to the emergency department with nausea, vomiting and diarrhea, constant for 3 days, moderate severity, associated with fatigue and weakness as well as some cramping upper abdominal pain. She denies any fevers or chills. She did complete an antibiotic for dental infection that was 3-4 weeks ago. She says she works at [employer] and is exposed to the public. She denies any known sick contacts. She has not traveled anywhere recently. [facility] Past Medical History Anemia: Yes Anxiety: Yes Depression: Yes Diminished Hearing: No Reproductive: Yes (ENDOMETRIOSIS) Immunizations Current: Yes Pneumonia: Yes Seizures: Yes (R/T BEING TAKEN OFF MEDS (SEROQUEL AND KLONOPIN)) ?: Not LMP: DEPO SHOT : 2 Para: 2 Ovarian Cysts: Yes Tubal Ligation: Yes (2009) Past Surgical History Abdominal Surgery: Yes (EXP LAP: 2016 R/T "PAINFUL PERIODS") Section: Yes (X1, 2009) Other Surgery: Yes (EXPLOR. LAP) Family History Family Hypercholesterolemia: Yes (MATERNAL GRANDFATHER) Social History Alcohol Use: No (DENIES) Tobacco Use: No (QUIT 06/28/17, PRIOR TO THAT: 08/21 PPD) Substance Use: No Allergies-Medications (Allergen,Severity, Reaction): Coded Allergies: azithromycin (Verified Allergy, Severe, HIVES, 09/03/17) oseltamivir (Verified Allergy, Severe, HIVES, 09/03/17) topiramate (Verified Allergy, Severe, HIVES, 09/03/17) Reported Meds & Prescriptions Reported Meds & Active Scripts Active Reported Depo-Provera Inj (Medroxyprogesterone Inj) 150 Mg/Ml Inj 150 Mg IM ONCE Review of Systems Except as stated in HPI: all other systems reviewed are Neg Physical Exam Narrative GENERAL:Well appearing, no acute distress SKIN: Focused skin assessment warm and dry. HEAD: Atraumatic. Normocephalic. EYES: Pupils equal and round. No injection or drainage. ENT: Dry mucous membranes NECK: Trachea midline. CARDIOVASCULAR: Regular rate and rhythm. No murmur appreciated. RESPIRATORY: Clear to auscultation. Breath sounds equal bilaterally. GASTROINTESTINAL: Abdomen soft, mildly tender to palpation diffusely with no rebound/guarding. MUSCULOSKELETAL: No obvious deformities. NEUROLOGICAL: Awake and alert. No obvious cranial nerve deficits. Moving all extremities. Moving all extremities. PSYCHIATRIC: Appropriate mood and affect; insight and judgment normal. Data Data Last Documented VS Vital Signs Date Time Temp Pulse Resp B/P (MAP) Pulse Ox O2 Delivery O2 Flow Rate FiO2 09/03/17 13:36 98.4 102 17 95/63 (74) 100 Orders Orders Complete Blood Count With Diff (09/03/17 13:58) Comprehensive Metabolic Panel (09/03/17 13:58) ^ Insert Iv (09/03/17 13:58) Sodium Chlor 0.9% 1000 Ml Inj (Ns 1000 M (09/03/17 14:00) Ondansetron Inj (Zofran Inj) (09/03/17 14:00) Ketorolac Inj (Toradol Inj) (09/03/17 14:00) Ed Poc Ultrasound (09/03/17 ) Ondansetron Odt (Zofran Odt) (09/03/17 15:45) Ketorolac Inj (Toradol Inj) (09/03/17 15:45) Labs Laboratory Tests Test 09/03/17 15:20 White Blood Count 6.0 TH/MM3 Red Blood Count 5.01 MIL/MM3 Hemoglobin 13.7 GM/DL Hematocrit 42.6 % Mean Corpuscular Volume 85.0 FL Mean Corpuscular Hemoglobin 27.4 PG Mean Corpuscular Hemoglobin Concent 32.2 % Red Cell Distribution Width 14.8 % Platelet Count 432 TH/MM3 Mean Platelet Volume 7.2 FL Neutrophils (%) (Auto) 60.8 % Lymphocytes (%) (Auto) 31.2 % Monocytes (%) (Auto) 5.2 % Eosinophils (%) (Auto) 1.5 % Basophils (%) (Auto) 1.3 % Neutrophils # (Auto) 3.6 TH/MM3 Lymphocytes # (Auto) 1.9 TH/MM3 Monocytes # (Auto) 0.3 TH/MM3 Eosinophils # (Auto) 0.1 TH/MM3 Basophils # (Auto) 0.1 TH/MM3 CBC Comment DIFF FINAL Differential Comment Blood Urea Nitrogen 13 MG/DL Creatinine 0.92 MG/DL Random Glucose 82 MG/DL Total Protein 7.9 GM/DL Albumin 4.1 GM/DL Calcium Level 9.2 MG/DL Alkaline Phosphatase 93 U/L Aspartate Amino Transf (AST/SGOT) 38 U/L Alanine Aminotransferase (ALT/SGPT) 40 U/L Total Bilirubin 0.5 MG/DL Sodium Level 138 MEQ/L Potassium Level 4.2 MEQ/L Chloride Level 106 MEQ/L Carbon Dioxide Level 24.6 MEQ/L Anion Gap 7 MEQ/L Estimat Glomerular Filtration Rate 71 ML/MIN [facility] Medical Decision Making Medical Screen Exam Complete: Yes Emergency Medical Condition: Yes Interpretation(s) No leukocytosis Electrolytes are reassuring Differential Diagnosis Viral gastroenteritis, appendicitis, colitis, electrolyte abnormality Narrative Course This is a 32-year-old female who presents to the emergency department with nausea vomiting and diarrhea. She has some epigastric discomfort. Labs were obtained which demonstrate no leukocytosis and no evidence of dehydration. I think patient can be managed as an outpatient with Zofran and Imodium. Patient will be discharged home. She has no focal tenderness on exam and I do not think she requires any CT imaging. Diagnosis Primary Impression: Gastroenteritis Patient Instructions: General Instructions Departure Forms: Tests/Procedures, Work Release Enter return to work date: Sep 06, 2017 Additional Instructions: If you develop lightheadedness, dizziness, persistent vomiting, inability to eat , or severe abdominal pain return to the emergency department. Followup with your primary care physician in 2-3 days if your symptoms have not resolved. Wash your hands aggressively after using the restroom as to not spread your illness to others. Do not return to work until your symptoms have resolved. Take Zofran as needed for nausea. Med/Other Pt SpecificInfo: Prescription(s) given Scripts Loperamide (Loperamide) 2 Mg Cap 2 MG PO DIRECTED Y for DIARRHEA, #14 CAP 0 Refills One capsule after each loose stool. Not to exceed 8 capsules per day. Prov: Chanda Harper MD 09/03/17 Ondansetron Odt (Zofran Odt) 4 Mg Tab 4 MG SL Q6HR Y for Nausea/Vomiting, #12 TAB 0 Refills Prov: Chanda Harper MD 09/03/17 Disposition: 01 DISCHARGE HOME Condition: Stable Chanda Harper MD Sep 03, 2017 14:34
[2017-09-03 15:32] LABS: AUTOMATED NEUTROPHIL # 3.6 TH/MM3 (1.8-7.7); BASOPHIL # 0.1 TH/MM3 (0-0.2); BASOPHIL % 1.3 % (0.0-2.0); EOSINOPHIL # 0.1 TH/MM3 (0-0.4); EOSINOPHIL % 1.5 % (0.0-4.0); HEMATOCRIT 42.6 % (35.0-46.0); HEMOGLOBIN 13.7 GM/DL (11.6-15.3); LYMPH % 31.2 % (9.0-44.0); LYMPHOCYTE # 1.9 TH/MM3 (1.0-4.8); MEAN CORPUSCULAR HEMOGLOBIN 27.4 PG (27.0-34.0); MEAN CORPUSCULAR HGB CONC 32.2 % (32.0-36.0); MEAN PLATELET VOLUME 7.2 FL (7.0-11.0); MONO % 5.2 % (0.0-8.0); MONOCYTE # 0.3 TH/MM3 (0-0.9); NEUT % 60.8 % (16.0-70.0); PLATELET COUNT 432 TH/MM3 (150-450); RED BLOOD COUNT 5.01 MIL/MM3 (4.00-5.30); RED CELL DISTRIBUTION WIDTH 14.8 % (11.6-17.2)
[2017-09-03 15:41] LABS: CHLORIDE 106 MEQ/L (98-107); SODIUM (NA) 138 MEQ/L (136-145)
[2017-09-03 15:44] LABS: ALBUMIN 4.1 GM/DL (3.4-5.0); BICARBONATE 24.6 MEQ/L (21.0-32.0); BLOOD UREA NITROGEN 13 MG/DL (7-18); CALCIUM 9.2 MG/DL (8.5-10.1); GLUCOSE,RANDOM 82 MG/DL (74-106)
[2017-09-03] MEDS ORDERED: ONDANSETRON ODT 4 MG TAB PO ONE (15:45)
[2017-09-03] MEDS ORDERED: KETOROLAC TROMETHAMINE 60 MG/2 ML (IM) VIAL IM ONE (15:45)
[2017-09-03 15:47] LABS: ALT (GPT) 40 U/L (10-53); AST (GOT) 38 U/L (15-37); CREATININE 0.92 MG/DL (0.50-1.00); GLOMERULAR FILTRATION RATE 71 ML/MIN (>89)
[2017-09-03 15:49] LABS: TOTAL BILIRUBIN ADULT 0.5 MG/DL (0.2-1.0); TOTAL PROTEIN 7.9 GM/DL (6.4-8.2)
[2017-09-03 15:50] LABS: ALKALINE PHOSPHATASE 93 U/L (45-117)
[2017-09-03] MEDS ORDERED: ZOFR4TAB3 SL (15:59)
[2017-09-03] MEDS ORDERED: LOPE2CAP PO (15:59)
[2017-09-03 16:13] VITALS: BP 127/84
== END 2017-09-03 16:57 | disposition home or self-care (01) ==
LOC: PHED 13:34
DX: K52.9 Noninfective gastroenteritis and colitis, unspecified (principal); R53.83 Other fatigue; R53.1 Weakness; R10.10 Upper abdominal pain, unspecified; Z86.2 Personal history of diseases of the blood and blood-forming organs and certain disorders involving the immune mechanism; Z86.59 Personal history of other mental and behavioral disorders; Z87.42 Personal history of other diseases of the female genital tract
CPT/HCPCS: 80053; 85025; 96372; 99284; J1885

== ENCOUNTER 2017-09-28 11:50 | Emergency (ER) | payer OTHER ==
[~2017-09-28] VITALS: Ht 157.5 cm; Wt 73.5 kg
[~2017-09-28 11:50] MED LIST changes: -ALBUAER3 INH; -BENZ100 PO; +DEPO150I IM; +LOPE2CAP PO; -PRED20 PO; +ZOFR4TAB3 SL
[2017-09-28 11:51] VITALS: BP 121/78; PULSE 102; RESP 14; TEMP 98.4; O2SAT 100
[2017-09-28] MEDS ORDERED: BUSP10TA PO (12:03)
[2017-09-28] MEDS ORDERED: SODIUM CHLOR 0.9% 1000 ML INJ 1,000 ML IV SCH (12:16)
--- NOTE | 2017-09-28 12:16 | PD ---
HPI Chief Complaint: Abdominal Pain Time Seen by Provider: 11:59 Travel History International Travel<30 days: No Contact w/Intl Traveler<30days: No Traveled to known affect area: No History of Present Illness HPI 32-year-old woman who presents to the emergency department complaining of abdominal pain. She states it feels similar when she has had gallstones in the past. Pain is in the middle part of her abdomen. Radiates all the to the left side. She has had nausea but no vomiting. No change in her bowel movements. No fevers. Only history in the abdomen is and previous laparoscopy for sounds like [employer]PER[employer] problems. History Past Medical History Narrative Medical Depression Migraines LMP: "Im on Depo, about 6 months ago" : 2 Para: 2 Social History Alcohol Use: No (DENIES) Tobacco Use: No Allergies-Medications (Allergen,Severity, Reaction): Coded Allergies: azithromycin (Verified Allergy, Severe, HIVES, 09/03/17) oseltamivir (Verified Allergy, Severe, HIVES, 09/03/17) topiramate (Verified Allergy, Severe, HIVES, 09/03/17) Reported Meds & Prescriptions Reported Meds & Active Scripts Active Reported Buspirone (Buspirone HCl) 10 Mg Tab 10 Mg PO BID Depo-Provera Inj (Medroxyprogesterone Inj) 150 Mg/Ml Inj 150 Mg IM ONCE Review of Systems Except as stated in HPI: all other systems reviewed are Neg Physical Exam Narrative GENERAL: Well-appearing 32-year-old woman, nontoxic. SKIN: Focused skin assessment warm/dry. HEAD: Atraumatic. Normocephalic. EYES: Pupils equal and round. No scleral icterus. No injection or drainage. ENT: No nasal bleeding or discharge. Mucous membranes pink and moist. NECK: Trachea midline. No JVD. CARDIOVASCULAR: Regular rate and rhythm. No murmur appreciated. RESPIRATORY: No accessory muscle use. Clear to auscultation. Breath sounds equal bilaterally. GASTROINTESTINAL: Abdomen soft, nondistended. There is mild to moderate epigastric tenderness to palpation. Negative Watts's. No rebound or guarding. MUSCULOSKELETAL: No obvious deformities. No clubbing. No cyanosis. No edema. NEUROLOGICAL: Awake and alert. No obvious cranial nerve deficits. Motor grossly within normal limits. Normal speech. PSYCHIATRIC: Appropriate mood and affect; insight and judgment normal. Data Data Last Documented VS Vital Signs Date Time Temp Pulse Resp B/P (MAP) Pulse Ox O2 Delivery O2 Flow Rate FiO2 09/28/17 11:51 98.4 102 14 121/78 (92) 100 Orders Orders Complete Blood Count With Diff (09/28/17 12:16) Comprehensive Metabolic Panel (09/28/17 12:16) Lipase (09/28/17 12:16) Us Abdomen Gallbladder (09/28/17 ) Iv Access Insert/Monitor (09/28/17 12:16) Ondansetron Inj (Zofran Inj) (09/28/17 12:30) Sodium Chlor 0.9% 1000 Ml Inj (Ns 1000 M (09/28/17 12:16) Sodium Chloride 0.9% Flush (Ns Flush) (09/28/17 12:30) Famotidine Inj (Pepcid Inj) (09/28/17 12:30) Acetaminophen 1000 Mg/100 Ml (Ofirmev 10 (09/28/17 12:30) Dicyclomine Inj (Bentyl Inj) (09/28/17 13:30) Al-Mag Hy-Si 40-40-4 Mg/Ml Liq (Mag-Al P (09/28/17 13:30) Lidocaine 2% Viscous (Xylocaine 2% Visco (09/28/17 13:30) Morphine Inj (Morphine Inj) (09/28/17 14:30) Labs Laboratory Tests Test 09/28/17 12:19 White Blood Count 6.0 TH/MM3 Red Blood Count 5.33 MIL/MM3 Hemoglobin 15.6 GM/DL Hematocrit 45.4 % Mean Corpuscular Volume 85.2 FL Mean Corpuscular Hemoglobin 29.2 PG Mean Corpuscular Hemoglobin Concent 34.3 % Red Cell Distribution Width 14.7 % Platelet Count 337 TH/MM3 Mean Platelet Volume 7.5 FL Neutrophils (%) (Auto) 58.1 % Lymphocytes (%) (Auto) 33.2 % Monocytes (%) (Auto) 5.8 % Eosinophils (%) (Auto) 1.9 % Basophils (%) (Auto) 1.0 % Neutrophils # (Auto) 3.5 TH/MM3 Lymphocytes # (Auto) 2.0 TH/MM3 Monocytes # (Auto) 0.3 TH/MM3 Eosinophils # (Auto) 0.1 TH/MM3 Basophils # (Auto) 0.1 TH/MM3 CBC Comment DIFF FINAL Differential Comment Blood Urea Nitrogen 11 MG/DL Creatinine 0.90 MG/DL Random Glucose 84 MG/DL Total Protein 8.6 GM/DL Albumin 5.1 GM/DL Calcium Level 9.4 MG/DL Alkaline Phosphatase 86 U/L Aspartate Amino Transf (AST/SGOT) 15 U/L Alanine Aminotransferase (ALT/SGPT) 23 U/L Total Bilirubin 0.5 MG/DL Sodium Level 140 MEQ/L Potassium Level 3.8 MEQ/L Chloride Level 108 MEQ/L Carbon Dioxide Level 22.4 MEQ/L Anion Gap 10 MEQ/L Estimat Glomerular Filtration Rate 73 ML/MIN Lipase 179 U/L [facility] Medical Decision Making Medical Screen Exam Complete: Yes Emergency Medical Condition: Yes Interpretation(s) LABS: CBC unremarkable. CMP unremarkable Lipase normal . Ultrasound right upper quadrant: Linnette lithiasis, small right-sided stone. Differential Diagnosis Gastritis, pancreatitis, cholecystitis, biliary colic, pancreatitis, other Narrative Course Medical decision making INITIAL: 32-year-old woman presents emergency department epigastric abdominal pain, likely gastritis or reflux. Less likely hepatobiliary disease. Looks overall well. Will check labs, ultrasound, supportive treatment. FINAL: Cholelithiasis or cholecystitis. Also small right renal stone. Patient is more tender in epigastrium into the left. I think this is gastritis or peptic ulcer disease. Recommend antacids, outpatient follow-up. Diagnosis Primary Impression: Epigastric abdominal pain Additional Instructions: Take ranitidine twice daily as prescribed. Use acetaminophen as needed for pain. Follow-up with her primary doctor for further evaluation if not completely well in 2-4 days. Return to the emergency department for any new or worsening symptoms. Med/Other Pt SpecificInfo: Prescription(s) given Scripts Ranitidine (Ranitidine) 150 Mg Tab 150 MG PO BID for Heartburn Management, #60 TAB 0 Refills Prov: Franc Anthony MD 09/28/17 Disposition: 01 DISCHARGE HOME Condition: Stable Franc Anthony MD Sep 28, 2017 12:16
[2017-09-28] MEDS ORDERED: ONDANSETRON HCL 4 MG/2 ML VIAL IVP ONE (12:30)
[2017-09-28] MEDS ORDERED: ACETAMINOPHEN 1000 MG/100 ML 100 ML IV ONE (12:30)
[2017-09-28] MEDS ORDERED: SODIUM CHLORIDE 0.9% FLUSH 10 ML FLUSH IV FLUSH PRN (12:30)
[2017-09-28] MEDS ORDERED: FAMOTIDINE 20 MG/2 ML VIAL IV PUSH ONE (12:30)
[2017-09-28 12:43] LABS: AUTOMATED NEUTROPHIL # 3.5 TH/MM3 (1.8-7.7); BASOPHIL # 0.1 TH/MM3 (0-0.2); EOSINOPHIL # 0.1 TH/MM3 (0-0.4); EOSINOPHIL % 1.9 % (0.0-4.0); HEMATOCRIT 45.4 % (35.0-46.0); HEMOGLOBIN 15.6 GM/DL (11.6-15.3); LYMPH % 33.2 % (9.0-44.0); MEAN CELL VOLUME 85.2 FL (80.0-100.0); MEAN CORPUSCULAR HEMOGLOBIN 29.2 PG (27.0-34.0); MEAN CORPUSCULAR HGB CONC 34.3 % (32.0-36.0); MEAN PLATELET VOLUME 7.5 FL (7.0-11.0); MONO % 5.8 % (0.0-8.0); MONOCYTE # 0.3 TH/MM3 (0-0.9); NEUT % 58.1 % (16.0-70.0); PLATELET COUNT 337 TH/MM3 (150-450); RED BLOOD COUNT 5.33 MIL/MM3 (4.00-5.30); RED CELL DISTRIBUTION WIDTH 14.7 % (11.6-17.2)
[2017-09-28 12:58] LABS: ALBUMIN 5.1 GM/DL (3.4-5.0); ALT (GPT) 23 U/L (10-53); AST (GOT) 15 U/L (15-37); BICARBONATE 22.4 MEQ/L (21.0-32.0); BLOOD UREA NITROGEN 11 MG/DL (7-18); CALCIUM 9.4 MG/DL (8.5-10.1); CHLORIDE 108 MEQ/L (98-107); GLOMERULAR FILTRATION RATE 73 ML/MIN (>89); GLUCOSE,RANDOM 84 MG/DL (74-106); SODIUM (NA) 140 MEQ/L (136-145)
[2017-09-28 13:01] LABS: ALKALINE PHOSPHATASE 86 U/L (45-117); TOTAL BILIRUBIN ADULT 0.5 MG/DL (0.2-1.0); TOTAL PROTEIN 8.6 GM/DL (6.4-8.2)
[2017-09-28] MEDS ORDERED: DICYCLOMINE HCL 20 MG/2 ML VIAL IM ONE (13:30)
[2017-09-28] MEDS ORDERED: ALUMINUM/MAGNESIUM/SIMETH 30 ML CUP PO ONE (13:30)
[2017-09-28] MEDS ORDERED: LIDOCAINE VISCOUS 2% SOLN 15 ML UDC PO ONE (13:30)
--- NOTE | 2017-09-28 13:56 | RADRPT ---
EXAM DATE/TIME: 09/28/2017 13:29 [place] COMPARISON: No previous studies available for comparison. INDICATIONS : Right upper quadrant pain. MEDICAL HISTORY : Glasses. Seizures. Pneumonia. Ovarian cysts. Depression. Anxiety. Anemia. SURGICAL HISTORY : Tubal ligation. section. Exploratory lap surgery. ENCOUNTER: Initial ACUITY: 1 week PAIN SCORE: 8/10 LOCATION: Right upper quadrant MEASUREMENTS: LIVER: 15.0 cm length COMMON DUCT: 5 mm RIGHT KIDNEY: 9.7 x 3.6 x 3.8 cm FINDINGS: LIVER: Normal echotexture without focal lesion or ductal dilatation. COMMON DUCT: No intraluminal mass or stone visualized. GALLBLADDER: Multiple stones. The largest stone measures 1.2 cm in size. The gallbladder wall is thin. No sonograp hic Watts sign was elicited. PANCREAS: The visualized portions are within normal limits. RIGHT KIDNEY: There is a small nonobstructing 4 mm stone identified within the midpole of the right kidney. There i s prominence of the renal pelvis without dilation of the calyces. This may represent either a distal nonobstructing stone versus extrarenal pelvis. CONCLUSION: #1. Cholelithiasis without evidence of cholecystitis. #2. Small right sided renal stone. Prominence of the renal pelvis likely represents an extrarenal pel vis given the lack of dilation of the calyces. However, a nonobstructing more distal stone cannot be excluded on this exam. Effie Jimenez MD on September 28, 2017 at 13:50 Board Certified Radiologist. This report was verified electronically.
[2017-09-28] MEDS ORDERED: RANI150T PO (14:19)
[2017-09-28] MEDS ORDERED: MORPHINE SULFATE 4 MG/ML INJ IV PUSH ONE (14:30)
== END 2017-09-28 14:45 | disposition home or self-care (01) ==
LOC: NEPE 11:50
DX: K80.20 Calculus of gallbladder without cholecystitis without obstruction (principal); N20.0 Calculus of kidney; F32.9 Major depressive disorder, single episode, unspecified; Z88.8 Allergy status to other drugs, medicaments and biological substances
CPT/HCPCS: 76705; 80053; 83690; 85025; 96361; 96365; 96372; 96375; 99284; J0131; J0500; J2270; J2405; J7030

== ENCOUNTER 2017-10-30 20:40 | Emergency (ER) | payer OTHER ==
[~2017-10-30] VITALS: Ht 157.5 cm; Wt 71.0 kg
[~2017-10-30 20:40] MED LIST changes: +BUSP10TA PO; -LOPE2CAP PO; +RANI150T PO; -ZOFR4TAB3 SL
[2017-10-30 21:17] VITALS: BP 121/78; PULSE 106; RESP 18; TEMP 99; O2SAT 100
== END 2017-10-30 22:25 | disposition left against medical advice (07) ==
LOC: PHED 20:40
DX: Z53.21 Procedure and treatment not carried out due to patient leaving prior to being seen by health care provider (principal)
CPT/HCPCS: 99281